=== PATIENT | female | born 1940 | race Caucasian/White ===

== ENCOUNTER 2016-12-28 08:38 | Day surgery (SDC) | payer MEDICARE, OTHER ==
--- NOTE | ~2016-12-28 | EGD ---
EGD REPORT [facility] [address] [place] [address] NAME: JEFF ZARAGOZA : [birth year] STATUS : [place] [facility] [place] PAT#: [id number] AGE: 76 ADM/REG DATE : 12/28/16 MR#: [id number] REPORT SERV DATE: 12/28/16 DICTATED BY: ISA THOMAS DATE: 12/28/16 REPORT STATUS : Draft TRANSCRIBED BY: [facility] DATE: 12/28/16 End[facility] Patient Name: Jeff Zaragoza Date of : 1940 Attending MD: ISA THOMAS MD Procedure Date No Time: 12/28/2016 Procedure: Colonoscopy Indications: High risk colon CA surveillance: Personal history multiple (3 or more) adenomas; last exam 2013; modifier #22 attached due to length procedure to remove multiple polyps time 10:30am-11:06am. Patient Profile: Informed consent was obtained from the patient by me prior to the procedure. Risks, benefits, and alternatives were discussed including the risk of bleeding, perforation, infection, reaction to medicine, missed lesion, and cardiopulmonary complications. Referring MD: HIREN ARROYO Medicines: Monitored Anesthesia Care Complications: No immediate complications. Procedure: Pre-Anesthesia Assessment: - ASA Grade Assessment: III - A patient with severe systemic disease. After I obtained informed consent, the scope was passed under direct vision. Throughout the procedure, the patient's blood pressure, pulse, and oxygen saturations were monitored continuously. The PCF [id number] was introduced through the anus and advanced to the cecum, identified by appendiceal orifice and ileocecal valve. The colonoscope was slowly withdrawn with careful examination all mucosal surfaces including specific attention around flexures and tip deflection behind folds; retroflexion performed in rectum. The colonoscopy was performed without difficulty. The patient tolerated the procedure well. The quality of the bowel preparation was adequate. The ileocecal valve, appendiceal orifice and rectum were photographed. Findings: Four sessile polyps were found in the transverse colon. The polyps were 5 to 7 mm in size. These polyps were removed with a cold biopsy forceps. Resection and retrieval were complete. Two sessile polyps were found in the cecum. The polyps were 5 to 8 mm in size. These polyps were removed with a cold snare. Resection and retrieval were complete. A sessile polyp was found in the ascending colon. The polyp was 5 mm in EGD REPORT [address] [place]. [address] NAME: JEFF ZARAGOZA : [birth year] STATUS : REG [facility]#: [id number] AGE: 76 ADM/REG DATE : 12/28/16 MR#: [id number] REPORT SERV DATE: 12/28/16 DICTATED BY: ISA THOMAS DATE: 12/28/16 REPORT STATUS : Draft TRANSCRIBED BY: [employer] DATE: 12/28/16 size. The polyp was removed with a cold biopsy forceps. Resection and retrieval were complete. A sessile polyp was found in the transverse colon. The polyp was 8 mm in size. The polyp was removed with a cold snare. Resection and retrieval were complete. A sessile polyp was found in the transverse colon. The polyp was 10 mm in size. The polyp was removed with a hot snare. Resection and retrieval were complete. Two sessile polyps were found in the sigmoid colon. The polyps were 5 mm in size. These polyps were removed with a cold biopsy forceps. Resection and retrieval were complete. Diffuse melanosis was found in the entire colon. Impression: - Four 5 to 7 mm polyps in the transverse colon. Resected and retrieved. - Two 5 to 8 mm polyps in the cecum. Resected and retrieved. - One 5 mm polyp in the ascending colon. Resected and retrieved. - One 8 mm polyp in the transverse colon. Resected and retrieved. - One 10 mm polyp in the transverse colon. Resected and retrieved. - Two 5 mm polyps in the sigmoid colon. Resected and retrieved. - Diffuse Melanosis coli. Recommendation: - Patient has a contact number available for emergencies. The signs and symptoms of potential delayed complications were discussed with the patient. Return to normal activities tomorrow. Written discharge instructions were provided to the patient. - Regular diet. - Continue present medications. - Await pathology results. - Repeat colonoscopy for surveillance based on pathology results. - No aspirin, ibuprofen, naproxen, or other non-steroidal anti-inflammatory drugs for 7 days after polyp removal. Procedure Code(s): --- Professional --- 29260, Colonoscopy, flexible, proximal to splenic flexure; with removal of tumor(s), polyp(s), or other lesion(s) by snare technique 26127, 59, Colonoscopy, flexible, proximal to splenic flexure; with biopsy, single or multiple EGD REPORT [address] [place]. [address] NAME: JEFF ZARAGOZA : [birth year] STATUS : [place] [facility] [place] PAT#: [id number] AGE: 76 ADM/REG DATE : 12/28/16 MR#: [id number] REPORT SERV DATE: 12/28/16 DICTATED BY: ISA THOMAS DATE: 12/28/16 REPORT STATUS : Draft TRANSCRIBED BY: [employer] DATE: 12/28/16 Diagnosis Code(s): --- Professional --- D12.5, Benign neoplasm of sigmoid colon D12.2, Benign neoplasm of ascending colon D12.0, Benign neoplasm of cecum D12.3, Benign neoplasm of transverse colon K63.89, Other specified diseases of intestine Z86.010, Personal history of colonic polyps CPT copyright 2013 [employer]. All rights reserved. The codes documented in this report are preliminary and upon diesel bus mechanic review may be revised to meet current compliance requirements. ISA THOMAS MD 12/28/2016 11:13 AM This report has been signed electronically. Number of Addenda: 0 Note Initiated On: 12/28/2016 10:17 AM Scope Withdrawal Time 0 hours 21 minutes 41 seconds [address] [place] [address]
[~2016-12-28 08:38] MED LIST: BREO ELLIPTA INH; CENTRUM PO; CUVITRU SC; FLEX PO; KLOR-CON 88 MEQ PO; L80 PO; LEVOTHYROXIN75 MCG PO; LOP50 PO; MUCINEX1200 MG PO; MULTIPLE VIT PO; NORCO1 TA1 PO; PROAIR HFA INH; PROTONIX PO; SINGULAIR1 PO; SPIRO25 PO; TESS PO; TESSALON200 MG PO; TRAZODONE150 MG PO; ULTRAM50 PO; VITAMIN D PO; Z300 PO; ZOCOR40 PO; [UNRECOGNIZED DRUG - OTHER] SC
== END 2016-12-28 23:59 | disposition home or self-care (01) ==
LOC: DMU 08:38
PROVIDERS: Internal Medicine Gastroenterology
PROC: 0DBK8ZX Excision of Ascending Colon, Via Natural or Artificial Opening Endoscopic, Diagnostic (ICD-10-PCS; 2016-12-28)
PROC: 0DBH8ZX Excision of Cecum, Via Natural or Artificial Opening Endoscopic, Diagnostic (ICD-10-PCS; 2016-12-28)
PROC: 0DBL8ZX Excision of Transverse Colon, Via Natural or Artificial Opening Endoscopic, Diagnostic (ICD-10-PCS; principal; 2016-12-28 09:00)
PROC: 0DBN8ZX Excision of Sigmoid Colon, Via Natural or Artificial Opening Endoscopic, Diagnostic (ICD-10-PCS; 2016-12-28 09:00)
DX: Z12.11 Encounter for screening for malignant neoplasm of colon (principal); D12.5 Benign neoplasm of sigmoid colon; D12.2 Benign neoplasm of ascending colon; D12.0 Benign neoplasm of cecum; D12.3 Benign neoplasm of transverse colon; K63.89 Other specified diseases of intestine; J45.909 Unspecified asthma, uncomplicated; Z88.1 Allergy status to other antibiotic agents; Z88.8 Allergy status to other drugs, medicaments and biological substances; Z86.010 Personal history of colon polyps
CPT/HCPCS: 88305